=== PATIENT | male | born 1935 | race Caucasian/White ===

== ENCOUNTER 2016-09-25 07:32 | Day surgery (SDC) | payer MEDICARE, OTHER ==
--- NOTE | 2016-09-18 12:00 | HISTORY AND PHYSICAL E ---
History and Physical NAME: DEDRICK ALANIZ : 1935 AGE: 81Y ADMITTED: 09/25/2016 ROOM: CHIEF COMPLAINT: Rectal bleeding. HISTORY: Patient seen back in 2001 where he presented for colon exam, history of polyps. Patient did have diverticulosis. Colonoscopy shows diverticulosis. At this time patient presents with rectal bleeding. Referred by [facility]. REVIEW OF SYSTEMS: Patient did have cardiac cath. He did have bypass. The patient did have colonoscopy 2007 showing external hemorrhoids. Another colonoscopy 2011 showing anal fissures and hemorrhoids. PHYSICAL EXAMINATION: GENERAL: Pleasant, alert, oriented, in no acute distress. VITAL SIGNS: Blood pressure 120/80, pulse 80, respirations 18, temp is 98. HEAD, EYES, EARS, NOSE, THROAT: Normal. NECK: Supple. LUNGS: Clear. ABDOMEN: Soft. NEUROLOGIC: Exam negative. CONCLUSION: Rectal bleeding. PLAN: Colonoscopy. The patient presented at this time regarding colon exam. REVIEW OF SYSTEMS: Coronary artery disease, cardiac bypass. FAMILY HISTORY: Father had surgery. He passed after surgery. His mom had heart disease. CONCLUSION: Rectal bleeding, diverticulosis, coronary artery disease. PLAN: Colonoscopy. DICTATING PHYSICIAN: ASCENCION MINAYA M.D. [id number] Y#: [id number] ID: [id number] JOB#: [id number] ACCT: [id number] cc:[facility] ASCENCION MONTERROSO M.D. >
[2016-09-25] MEDS ORDERED: LIDOCAINE 2% JELLY 30 ML TUBE ONE (07:39)
[2016-09-25] MEDS ORDERED: ONDANSETRON HCL INJ/PF 4 MG/2 ML SDV ONE (07:40)
[2016-09-25] MEDS ORDERED: GLYCOPYRROLATE INJ 0.4 MG/2 ML VIAL ONE (07:40)
[2016-09-25] MEDS ORDERED: PROMETHAZINE HCL INJ 25 MG/1 ML VIAL ONE (07:40)
[2016-09-25] MEDS ORDERED: NALOXONE HCL INJ/PF 0.4 MG/1 ML SDV ONE (07:40)
[2016-09-25] MEDS ORDERED: FLUMAZENIL INJ 0.5 MG/5 ML VIAL IV ONE (07:41)
[2016-09-25] MEDS ORDERED: GLUCAGON,HUMAN RECOMB 1 MG INJ ONE (07:41)
[2016-09-25] MEDS ORDERED: EPINEPHRINE INJ 1 MG/10 ML DISP.SYRIN ONE (07:41)
[2016-09-25] MEDS: MIDAZOLAM 2 MG/2 ML INJ ONE ×2 (08:00→08:06)
[2016-09-25] MEDS: FENTANYL CITRATE INJ/PF 100 MCG/2 ML AMPUL ONE ×2 (08:02→08:05)
[2016-09-25 09:31] LABS: ABSOLUTE EOSINOPHILS # (AUTO) 0.1 10^3/uL (0.0-0.6); ABSOLUTE MONOCYTES (AUTO) 0.5 10^3/uL (0.1-1.4); ABSOLUTE NEUT (AUTO) 3.7 10^3/uL (1.7-8.2); BASOPHILS % (AUTO) 0.7 % (0-2); EOSINOPHILS % (AUTO) 1.5 % (0-6); HEMOGLOBIN 13.6 g/dL (13.5-17.0); HGB HCT DIFFERENCE 0.8; LYMPHOCYTES % (AUTO) 18.8 % (13-45); MEAN CORPUSCULAR HEMOGLOBIN 31.9 pg (27.0-33.4); MEAN CORPUSCULAR HGB CONC 34.1 g/dL (32.0-36.0); MEAN CORPUSCULAR VOLUME 93 fl (80-97); MONOCYTES % (AUTO) 9.5 % (3-13); RED BLOOD COUNT 4.28 10^6/uL (4.35-5.55); RED CELL DISTRIBUTION WIDTH 14.4 % (11.5-14.0); SEGMENTED NEUTROPHILS % (AUTO) 69.5 % (42-78); WHITE BLOOD COUNT 5.4 10^3/uL (4.0-10.5)
[2016-09-25 10:32] VITALS: BP 115/67
--- NOTE | 2016-09-25 11:56 | DISCHARGE SUMMARY E ---
Discharge Summary NAME: DEDRICK ALANIZ : 1935 AGE: 81Y ADMITTED: 09/25/2016 DISCHARGED: 09/25/2016 PROCEDURES: 1. Colonoscopy. 2. Biopsy. HOSPITAL COURSE: The patient is 81 and has history of rectal bleeding and diverticulosis. Today's colonoscopy successful to the cecum. A large amount of liquid stool in the right colon and transverse colon. A small 2-3 mm polyp rectum, external hemorrhoids and small anal fissure. DISCHARGE PLAN: 1. Soft low residue. 2. CBC. 3. Hold aspirin for 3 days. 4. Awaiting biopsy. 5. Consider followup colonoscopy in 2 years. DICTATING PHYSICIAN: ASCENCION MINAYA M.D. [id number] PHY#: [id number] ID: [id number] JOB#: [id number] ACCT: [id number] cc:[facility] [place] ASCENCION MINAYA M.D. >
--- NOTE | 2016-09-25 11:57 | OPERATIVE REPORT E ---
Operative Report NAME: DEDRICK ALANIZ : 1935 AGE: 81Y DATE OF SURGERY: 09/25/2016 ROOM: PREOPERATIVE DIAGNOSIS: Rectal bleeding. POSTOPERATIVE DIAGNOSES: 1. External hemorrhoids. 2. A 2 mm rectal polyp. 3. Sigmoid descending colon diverticulosis. PROCEDURE: Colonoscopy. SURGEON: ASCENCION MINAYA M.D. TISSUE REMOVED OR ALTERED: Rectal polyp biopsy. ANESTHESIA: Versed 3, fentanyl 100. DESCRIPTION: Rectal exam: External hemorrhoids. Rectosigmoid junction 3 mm polyp removed biopsy. Sigmoid diverticulosis, descending colon diverticulosis, transverse colon large amount of liquid stool, ascending colon liquid stool. Cecum liquid stool, normal. Scope withdrawn from cecum, ascending, transverse, descending, sigmoid all the way to the rectum. CONCLUSION: 1. A 2-3 mm rectal polyp. 2. External hemorrhoids. 3. Sigmoid descending colon diverticulosis. 4. Large amount of liquid stool in the right colon and transverse colon. PLAN: Hold aspirin, nonsteroidal 3 days. Baseline CBC. Awaiting biopsy results. Consider followup colonoscopy 2 years with better prep pending biopsy results. DICTATING PHYSICIAN: ASCENCION MINAYA M.D. [id number] PHY#: [id number] ID: [id number] JOB#: [id number] ACCT: [id number] cc:[facility] ASCENCION MONTERROSO M.D. >
== END 2016-09-25 09:30 | disposition home or self-care (01) ==
LOC: END 07:32
PROVIDERS: ATTEND Specialist
PROC: 0DBP8ZX Excision of Rectum, Via Natural or Artificial Opening Endoscopic, Diagnostic (ICD-10-PCS; principal; 2016-09-25 08:00)
DX: K62.1 Rectal polyp (principal); K62.5 Hemorrhage of anus and rectum; K57.30 Diverticulosis of large intestine without perforation or abscess without bleeding; K64.4 Residual hemorrhoidal skin tags
CPT/HCPCS: 45380; 36415; 85025; 88305 ×2; J2250; J3010; J1610; J0171; J2310; J2405; J2550; J3490

== ENCOUNTER → 2017-03-12 | Outpatient (CLI) | payer MEDICARE, OTHER ==
--- NOTE | 2017-03-12 12:22 | WOMENS IMAGING REPORT ---
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 LIMITATIONS: None. FINDINGS: LUMBAR SPINE: The bone mineral density (BMD) measured from L1-L4 in the AP projection correlates with a T-score of +0.2, which is normal as defined by the World Health Organization. Please note that this does includ e vertebral body endplates and posterior elements. This represents a 20% increase since 2007, likely artifact from bony sclerosis HIP: The bone mineral density (BMD) measured in the left femoral neck at the hip correlates with a T-score of -0.8, which is normal as defined by the World Health Organization. IMPRESSION: 1. LUMBAR SPINE: Normal 2. HIP: Normal COMMENT: The World Health Organization defines low BMD as follows: T-score: Normal: Greater than -1.0 Osteopenia: Between -1.0 and -2.5 Osteoporosis: Less than -2.5 without fractures Established osteoporosis: Less than -2.5 with fractures In general, you may wish to consider: Diagnosis Treatment Follow-up DEXA Normal BMD Prevention 2-3 years Osteopenia Prevention/Therapy 1-2 years Osteoporosis Therapy Yearly TECHNICAL DOCUMENTATION: JOB ID: [id number]- All Rights Reserved
== END ==
LOC: WI 09:35
PROVIDERS: ATTEND Internal Medicine
DX: M81.0 Age-related osteoporosis without current pathological fracture (principal)
CPT/HCPCS: 77080